=== PATIENT | male | born 1985 | race Caucasian/White ===

== ENCOUNTER 2017-05-22 10:34 | Emergency (ER) | payer MEDICAID ==
[~2017-05-22] VITALS: Ht 180.3 cm; Wt 93.0 kg
[2017-05-22] MEDS ORDERED: LOPERAMIDE HCL 2 MG CAPSULE PO ONE (11:00)
--- NOTE | 2017-05-22 11:11 | NUR ---
patient was seen by md for c/o diarrhea x 2 years. DC, Rx and follow up instructions given and explained to patient who states he understands all instructions.
[2017-05-22] MEDS ORDERED: LOPERAMIDE HCL 2 MG CAPSULE ONE (11:14)
== END 2017-05-22 11:12 | disposition home or self-care (01) ==
LOC: ER 10:34
DX: R19.7 Diarrhea, unspecified (principal)
CPT/HCPCS: A4663